=== PATIENT | female | born 2000 | race Caucasian/White ===

== ENCOUNTER 2022-05-23 22:59 | Emergency (ER) | payer SELFPAY ==
[~2022-05-23] VITALS: Ht 157.5 cm; Wt 52.7 kg
[2022-05-23 22:59] VITALS: BP 123/73
[2022-05-23] MEDS ORDERED: IBUPROFEN 800 MG TAB PO ONE (23:30)
[2022-05-24] MEDS ORDERED: IBUP800T26 PO (00:14)
== END 2022-05-24 01:25 | disposition home or self-care (01) ==
LOC: ER 22:59
DX: M25.511 Pain in right shoulder (principal); Z79.1 Long term (current) use of non-steroidal anti-inflammatories (NSAID)
CPT/HCPCS: 73030

== ENCOUNTER 2024-03-01 01:14 | Emergency (ER) | payer SELFPAY ==
[~2024-03-01] VITALS: Ht 157.5 cm; Wt 54.5 kg
[~2024-03-01 01:14] MED LIST: IBUP-1455 PO
[2024-03-01] MEDS: KETOROLAC TROMETH 30 MG/ML 1ML VIAL IM ONE (01:39)
[2024-03-01] MEDS: KETOROLAC TROMETH 30 MG/ML 1ML VIAL IV ONE (01:42)
[2024-03-01 02:00] VITALS: TEMP 98.8
[2024-03-01] MEDS: SODIUM CHLORIDE 0.9% 1,000 ML IV ONE (02:12)
[2024-03-01] MEDS: PROPOFOL 10 MG/ML 20 ML IV ONE (02:19)
[2024-03-01 02:45] VITALS: PULSE 63; RESP 15; O2SAT 100
[2024-03-01 03:40] VITALS: BP 131/82; PULSE 80; RESP 17; O2SAT 99
== END 2024-03-01 03:39 | disposition home or self-care (01) ==
LOC: ER 01:14
DX: S43.004A Unspecified dislocation of right shoulder joint, initial encounter (principal); Z79.899 Other long term (current) drug therapy; Y04.8XXA Assault by other bodily force, initial encounter; Y93.89 Activity, other specified; Y92.89 Other specified places as the place of occurrence of the external cause; Y99.8 Other external cause status
CPT/HCPCS: 23650; 73030; 96361; 96374; 99152; 99153; 99285; J1885; J2704; J7030

== ENCOUNTER 2024-09-05 10:01 | Emergency (ER) | payer MEDICAID, OTHER ==
[~2024-09-05] VITALS: Ht 157.5 cm; Wt 54.1 kg
[2024-09-05 10:49] VITALS: BP 94/69; PULSE 91; RESP 17; TEMP 98.2; O2SAT 98
[2024-09-05 13:03] LABS: Urine Bacteria FEW /hpf (None Seen); Urine Blood Negative /uL (Negative); Urine Clarity Turbid (Clear); Urine Color Light-Yellow (Yellow); Urine Mucus FEW (None Seen); Urine Protein, UAD 1+ (Negative); Urine Specific Gravity 1.016 (1.001-1.035); Urine Squamous Epithelial Cell FEW /hpf (<5); Urine Urobilinogen Normal (Negative); Urine WBC 250 /HPF (0-5)
[2024-09-05] MEDS: cefTRIAXone SOD 1,000 MG VL IM ONE (13:24)
[2024-09-05] MEDS ORDERED: NITR-87 PO (13:27)
--- NOTE | 2024-09-05 13:27 | ED.PDOC ---
General HPI Comments 24-year-old with no MHx presents for a possible UTI as she complains of dysuria for two weeks associated with lower back pain that is rated as mild to moderate Denies fevers chills nausea vomiting diarrhea Chief Complaint: Urinary Time Seen by MD: 10:21 Reviewed notes: Nurses Notes, Medications, Allergies Allergies: Coded Allergies: NO KNOWN ALLERGIES (Unverified , 05/23/22) Home Meds Active Scripts Nitrofurantoin Monohydrate Mac (Macrobid) 100 Mg Cap, 100 MG PO BID for 7 Days, #14 CAP 0 Refills Prov:HANK BUENO REHABILITATOR 09/05/24 Ibuprofen Micronized (Ibuprofen) 800 Mg Tab, 800 MG PO BID for 14 Days, #28 TAB Prov:TIMOTHY DAVIDSON COMP FIELD CASE MANAGER 05/24/22 Information Source: Patient Mode of Arrival: Ambulatory Past Medical History PAST MEDICAL HISTORY: Denies Surgical History: Denies all surgeries PLAYGROUND EQUIPMENT ERECTOR History: No Pertinent PLAYGROUND EQUIPMENT ERECTOR History Family History Family History: Reviewed,noncontributory to illness, No family hx of Cancer, No family hx of DM, No family hx of Heart yvan, No family hx of HTN, No family hx ofKidney yvan, No family hx of Liver yvan, No family hx of Lung yvan, No family hx of Stroke Social History Smoker: Non-Smoker Alcohol: Occasionally Drugs: Denies Drug Use Lives In: Home All Other Systems: Reviewed and Negative (Per HPI) Physical Exam General Appearance: No Apparent Distress, Normal HEENT: Normal ENT Inspection, Pharynx Normal, TMs Normal Neck: Full Range of Motion, Non-Tender, Normal, Normal Inspection Respiratory: Chest Non-Tender, Lungs Clear, No Accessory Muscle Use, No Respiratory Distress, Normal Breath Sounds Cardiovascular: No Murmur, No Gallop, Regular Rate/Rhythm Breast Exam: Deferred Gastrointestinal: No Organomegaly, Non Tender, No Pulsatile Mass, Normal Bowel Sounds, Soft, Other (CVA tenderness negative bilaterally) Genitalia: Deferred Pelvic: Deferred Rectal: Deferred Extremities: No calf tenderness, Normal capillary refill, Normal inspection, Normal range of motion, Non-tender, No pedal edema Musculoskeletal : Apperance: Normal Neurologic: Alert, No Motor Deficits, Normal Affect, Normal Mood, No Sensory Deficits Cerebellar Function: Normal Reflexes: Normal Skin: Dry, Normal Color, Warm Lymphatic: No Adenopathy Was a procedure done? Was a procedure done?: No Differential Diagnosis Kidney stone (Female): Other Urinary Problem (Female): PID, UTI, Vaginitis X-Ray, Labs, Meds, VS Vital Signs Date Time Temp Pulse Resp B/P (MAP) Pulse Ox O2 Delivery O2 Flow Rate FiO2 09/05/24 10:49 98.2 91 17 94/69 (77) 98 98.2 09/05/24 10:49 91 17 98 Room Air 09/05/24 10:21 98.2 91 17 94/69 (77) 98 98.2 Lab Test 09/05/24 12:30 Range/Units Urine Color Light-yellow Yellow Urine Clarity Turbid H Clear Urine pH 6.0 5.0-9.0 Urine Specific [place] 1.016 1.001-1.035 Urine Protein 1+ H Negative Urine Ketones Negative Negative Urine Blood Negative Negative /uL Urine Nitrite Negative Negative Urine Bilirubin Negative Negative Urine Urobilinogen Normal Negative mg/dL Urine Leukocyte Esterase 3+ Negative /uL Urine RBC 10 0 - 4 /hpf Urine Microscopic WBC 250 H 0-5 /HPF Urine Squamous Epithelial Cells Few <5 /hpf Urine Bacteria Few H None Seen /hpf Urine Mucus Few None Seen Urine Glucose Normal Normal mg/dL Urine Test Negative Negative Chlamydia trachomatis (EARL) Negative Negative Neisseria gonorrhoeae (EARL) Negative Negative X-Ray, Labs, Meds, VS Comment History and lab findings consistent with UTI Vital signs stable patient stable Patient tolerating p.o. fluids Encouraged parents to increase water intake Practice good personal hygiene. Always wipe from front to back Drink plenty of fluids to help flush bacteria out of the urinary tract Empty bladder completely as soon as you feel the urge Empty bladder after intercourse Prescribed p.o. antibiotics for presentation of symptoms Complete course of antibiotic therapy even if symptoms improve or resolve. There should be no leftover antibiotics as this can lead to antibiotic resistant bacteria and even worse infection. Parents verbalized understanding. Potential side effects discussed with patient including abdominal pain, nausea, diarrhea. Recommended probiotics and return precautions given Persistent diarrhea Dehydration Blood in stool Ill-appearing Time of 1ST Reevaluation: 13:16 Reevaluation 1ST: Improved Patient Education/Counseling: Diagnosis, Treatment Family Education/Counseling: Diagnosis, Treatment Departure 1 Departure Time of Disposition: 13:26 Impression: Primary Impression: UTI (urinary tract infection) Qualified Codes: N30.00 - Acute cystitis without hematuria Disposition: HOME / SELF CARE / HOMELESS Condition: Stable e-Prescriptions Nitrofurantoin Monohydrate Mac (Macrobid) 100 Mg Cap 100 MG PO BID for 7 Days, #14 CAP 0 Refills Prov: HANK BUENO NP 09/05/24 Critical Care Note Critical Care Time?: No Stability Stability form required: No Heart Score Heart Score: Heart Score Response (Comments) Value History N/A 0 EKG N/A 0 Age N/A 0 Risk Factors N/A 0 Troponin N/A 0 Total 0 HANK BUENO NP Sep 05, 2024 13:27
[2024-09-08 01:06] LABS: Chlamydia Trachomatis, NAA Negative (Negative); Neisseria gonorrhoeae, NAA Negative (Negative)
== END 2024-09-05 13:33 | disposition home or self-care (01) ==
LOC: ER 10:01
DX: N39.0 Urinary tract infection, site not specified (principal); R10.9 Unspecified abdominal pain
CPT/HCPCS: 81001; 81025; 87491; 87591; 96372; 99283; J0696

== ENCOUNTER 2024-09-11 01:31 | Emergency (ER) | payer MEDICAID ==
[~2024-09-11] VITALS: Ht 162.6 cm; Wt 70.0 kg
[~2024-09-11 01:31] MED LIST changes: +NITR-87 PO
--- NOTE | 2024-09-11 01:49 | ED.PDOC ---
History of Present Illness HPI Comments 24-year-old female brought in by EMS presents with a chief complaint of possible right shoulder dislocation. Patient states that she was stretching and that her shoulder dislocated. Patient mentions that she has dislocated the same shoulder four times before in the past. Patient mentions that her pain is currently a 10/10 pain. Patient was given a total of 42mg of Ketamine for the pain by EMS. Chief Complaint: Upper Extremity Time Seen by MD: 01:42 Reviewed Notes: Medications, Allergies Allergies: Coded Allergies: NO KNOWN ALLERGIES (Unverified , 05/23/22) Home Meds Active Scripts Nitrofurantoin Monohydrate Mac (Macrobid) 100 Mg Cap, 100 MG PO BID for 7 Days, #14 CAP 0 Refills Prov:HANK BUENO CHISEL TRIMMER 09/05/24 Ibuprofen Micronized (Ibuprofen) 800 Mg Tab, 800 MG PO BID for 14 Days, #28 TAB Prov:TIMOTHY DAVIDSON CORPORATE COMMUNICATIONS SPECIALIST 05/24/22 Information Source: Patient, Emergency Med Personnel Mode of Arrival: EMS Severity: Moderate Timing: Minutes Duration: Since onset Prehospital treatment: Sterile Supply Technician, Oxygen, Pain Meds (21mg Ketamine x 2 Doses) Vital Signs Vital Signs Date Time Temp Pulse Resp B/P (MAP) Pulse Ox O2 Delivery O2 Flow Rate FiO2 09/11/24 05:53 61 18 110/69 (83) 100 09/11/24 02:10 98.3 98.3 09/11/24 02:05 Room Air* 0 21 Physical Exam General: Awake, alert and oriented. No acute distress. Skin: Skin in warm, dry and intact without rashes or lesions. HEENT: The head is normocephalic and atraumatic. Conjunctivae are clear without exudates or hemorrhage. Sclera is non-icteric. Neck: Normal range of motion. No JVD. Cardiac: Regular rate Respiratory: No signs of respiratory distress. No Stridor. Extremities: Right shoulder with obvious deformity and decreased range of motion. Positive right shoulder tenderness to palpation. Good radial pulse. Neurological: The patient is awake, alert and oriented to person, place, and time with normal speech. Speech is clear. There is no facial asymmetry. Psychiatric: Appropriate mood and affect. Good judgement and insight. Review of Systems: REVIEW OF SYSTEMS: No fever, no chills, HEENT: No neck pain, no blurred vision Cardiac: No chest pain. No palpitations. Lungs: No shortness of breath, GI: No abdominal pain, no vomiting Musculoskeletal: Right shoulder pain, decreased range of motion, deformity Skin: No rash, no wound Neuro: No headache, no dizziness, no syncope Past Medical History PAST MEDICAL HISTORY: Denies Surgical History: Denies all surgeries ARTIFICIAL BREEDING DISTRIBUTOR History: No Pertinent ARTIFICIAL BREEDING DISTRIBUTOR History Family History Family History: Reviewed,noncontributory to illness, No family hx of Cancer, No family hx of DM, No family hx of Heart yvan, No family hx of HTN, No family hx ofKidney yvan, No family hx of Liver yvan, No family hx of Lung yvan, No family hx of Stroke Social History Smoker: Non-Smoker Alcohol: Occasionally Drugs: Denies Drug Use Lives In: Home Was a procedure done? Was a procedure done?: No Differential Dx Considerations may include: Fracture, right shoulder dislocation, ligamentous injury, vascular injury, nerve injury, other X-Ray, Labs, Meds, VS Vital Signs Date Time Temp Pulse Resp B/P (MAP) Pulse Ox O2 Delivery O2 Flow Rate FiO2 09/11/24 05:53 61 18 110/69 (83) 100 09/11/24 05:30 66 14 106/70 09/11/24 04:10 75 16 105/61 (76) 99 09/11/24 02:15 71 16 121/75 09/11/24 02:10 98.3 66 14 96/62 (73) 98 98.3 09/11/24 02:05 64 16 99 Room Air* 0 21 09/11/24 01:37 98.2 90 16 124/77 (93) 95 98.2 Lab Test 09/11/24 03:25 Range/Units Urine Test Negative Negative Time of 1ST Reevaluation: 02:12 Reevaluation 1ST: Unchanged Patient Education/Counseling: Diagnosis, Treatment, Prognosis Family Education/Counseling: No Family Present Departure 1 Departure Time of Disposition: 02:51 Impression: Primary Impression: Recurrent dislocation, right shoulder Disposition: 01 HOME / SELF CARE / HOMELESS Condition: Stable Referrals: SUDARSHAN PARIKH MD Additional Instructions: ED DISCHARGE INSTRUCTIONS Instructions: Please read all instructions provided in this packet carefully. Although you have been discharged from the Emergency Department, this does not mean that you have a "clean bill of health". No definitive diagnosis for your symptoms has been made today. It is possible that you are in the process of developing a serious illness. This is why you must return to the ED without fail if any new or worsening symptoms (especially if your symptoms include chest pain, trouble breathing, abdominal pain, fever, headache, confusion, trouble seeing, or trouble walking) It is also very important that you see a primary care doctor within the next 3-5 days to follow up. We had a referral from your primary care provider to see an equipment sales specialist. Keep shoulder in immobilizer until you follow up with the primary care provider. Take ibuprofen and Tylenol as needed for pain. If you are unable to get an appointment, return to the ED for re-evaluation. Comments 24-year-old female who presented to the emergency department with recurrent dislocation of the right shoulder. During the ED observation while imaging and procedural sedation for reduction was pending patient's shoulder spontaneously reduced. Patient was placed in shoulder immobilizer, advised to follow up with primary care provider and orthopedics referral. Critical Care Note Critical Care Time?: No Stability Stability form required: No Heart Score Heart Score: Heart Score Response (Comments) Value History N/A 0 EKG N/A 0 Age N/A 0 Risk Factors N/A 0 Troponin N/A 0 Total 0 I personally scribed for JEFFERY BAILEY MD ([email or web address]) on 09/11/24 at 01:49. Electronically submitted by Nikita Nguyễn ([email or web address]). JEFFERY BAILEY MD Sep 11, 2024 01:49
[2024-09-11] MEDS: KETAMINE 50mg/ML 10ml Vial (500mg/10ml) IV ONE (02:00)
[2024-09-11] MEDS: PROPOFOL 10 MG/ML 20 ML IV ONE (02:00)
[2024-09-11 02:05] VITALS: PULSE 64; RESP 16; O2SAT 99
[2024-09-11 02:10] VITALS: TEMP 98.3
[2024-09-11] MEDS: MORPHINE SULFATE INJ 2 MG/ml SYRG IV ONE (02:15)
[2024-09-11] MEDS: KETOROLAC TROMETH 30 MG/ML 1ML VIAL IV ONE (02:18)
[2024-09-11] MEDS: SODIUM CHLORIDE 0.9% 1,000 ML IV ONE (02:22)
--- NOTE | 2024-09-11 05:08 | DVH ---
CLINICAL INDICATION: dislocation TECHNIQUE: XY R SHOULDER 2+ VIEW XRAY Comparison: XY R SHOULDER 2+ VIEW XRAY on DOS: 03/01/24, XY R SHOULDER 2+ VIEW XRAY on DOS: 03/01/24, R SHOULDER COMPLETE XRAY on DOS: 05/23/22 FINDINGS/IMPRESSION: : There is no evidence of acute fracture or dislocation. Soft tissues are unremarkable.
--- NOTE | 2024-09-11 05:08 | DVH ---
CHEST RADIOGRAPH Indication: Bilateral shoulders in view Technique: Single frontal view of the chest was obtained COMPARISON: None FINDINGS: Lines and Tubes: None Lungs: Clear Pleura: No effusion. No pneumothorax. Cardiomediastinal contours: Unremarkable Bones: Unremarkable IMPRESSION: No acute disease.
[2024-09-11 05:53] VITALS: BP 110/69; PULSE 61; RESP 18; O2SAT 100
--- NOTE | 2024-09-11 06:02 | DVH ---
EXAM: XR Right Shoulder Complete, 2 or More Views CLINICAL INDICATION: Spontaneous reduction TECHNIQUE: Two or more views of the right shoulder. COMPARISON: XY R SHOULDER 2+ VIEW XRAY on DOS: 09/11/24, XY R SHOULDER 2+ VIEW XRAY on DOS: 03/01/24, XY R SHOULDER 2+ VIEW XRAY on DOS: 03/01/24, R SHOULDER COMPLETE XRAY on DOS: 05/23/22 FINDINGS: BONES/JOINTS: Unremarkable. No acute fracture. No dislocation. SOFT TISSUES: Unremarkable. OTHER FINDINGS: . None. IMPRESSION: No acute fracture.
== END 2024-09-11 06:10 | disposition home or self-care (01) ==
LOC: ER 01:31 → EDBD 01:31 → ER 06:10
DX: M24.411 Recurrent dislocation, right shoulder (principal); Z79.899 Other long term (current) drug therapy
CPT/HCPCS: 29105; 71045; 73030; 81025; 96361; 96374; 96375; 99285; J1885; J2270; J7030; 23650; J2704

== ENCOUNTER 2024-10-02 21:38 | Emergency (ER) | payer MEDICAID ==
[~2024-10-02] VITALS: Ht 157.5 cm; Wt 52.1 kg
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
--- NOTE | 2024-10-02 22:52 | DVH ---
CLINICAL INDICATION: pain TECHNIQUE: 2 radiographic views of the right shoulder were obtained. Comparison: XY R SHOULDER 2+ VIEW XRAY on DOS: 09/11/24, XY R SHOULDER 2+ VIEW XRAY on DOS: 09/11/24, XY R SHOULDER 2+ VIEW XRAY on DOS: 03/01/24 FINDINGS/IMPRESSION: Anterior dislocation of the right humerus. No fractures visible. The visualized joint space is well maintained. The alignment is anatomical. There is no radiopaque foreign body.
[2024-10-02 23:30] VITALS: BP 100/75; TEMP 98.2
[2024-10-02 23:35] VITALS: PULSE 75; O2SAT 100
[2024-10-02 23:45] VITALS: PULSE 95; RESP 20; O2SAT 100
[2024-10-02] MEDS: KETAMINE 50mg/ML 10ml Vial (500mg/10ml) IV ONE (23:45)
[2024-10-03] MEDS: ONDANSETRON HCL 4 MG/2 ML VIAL IV ONE (00:21)
[2024-10-03] MEDS: ONDANSETRON HCL 4 MG/2 ML VIAL ONE (00:21)
--- NOTE | 2024-10-03 00:29 | DVH ---
CLINICAL INDICATION: POST REDUCTION TECHNIQUE: XY R SHOULDER 1V XRAY Comparison: XY R SHOULDER 2+ VIEW XRAY on DOS: 10/02/24, XY R SHOULDER 2+ VIEW XRAY on DOS: 09/11/24, XY R SHOULDER 2+ VIEW XRAY on DOS: 09/11/24, XY R SHOULDER 2+ VIEW XRAY on DOS: 03/01/24, XY R SHOULDER 2+ VIEW XRAY on DOS: 03/01/24 FINDINGS/IMPRESSION: : Successful interval reduction of right glenohumeral joint. There is no evidence of acute fracture or dislocation. Soft tissues are unremarkable.
== END 2024-10-03 01:40 | disposition home or self-care (01) ==
LOC: ER 21:38
DX: M24.411 Recurrent dislocation, right shoulder (principal); Y31.XXXA Falling, lying or running before or into moving object, undetermined intent, initial encounter; Y93.89 Activity, other specified; Y92.89 Other specified places as the place of occurrence of the external cause; Y99.8 Other external cause status
CPT/HCPCS: 23650; 73030; 96374; 99152; 99285; J2405